=== PATIENT | female | born 1945 | race Caucasian/White ===

== ENCOUNTER 2018-08-27 13:56 | Outpatient (CLI) | payer OTHER, SELFPAY ==
[2018-08-27 15:10] LABS: Abs Immature Grans 0.01 k/cumm (0.0-0.09); Absolute Basophil Count 0.01 k/cumm (0.0-0.2); Absolute Eosinophil Count 0.18 k/cumm (0.0-0.7); Absolute Lymphocyte Count 1.29 k/cumm (1.2-3.4); Absolute Monocyte Count 0.71 k/cumm (0.11-0.7); Absolute Neutrophil Count 4.09 k/cumm (1.2-6.7); Basophils % 0.2; Eosinophils % 2.9; HCT 37.1 % (36.0-46.0); HGB 13.1 g/dL (12.0-15.5); Immature Grans % 0.2; Lymphocytes % 20.5; Mean Corp. HGB Concentration 35.3 g/dL (32.0-36.0); Mean Corpuscular Hemoglobin 31.6 pg (27.0-33.0); Mean Corpuscular Volume 89.6 fL (80-95); Monocytes % 11.3; Neutrophils % 64.9; Platelet Count 285 x1000/uL (130-400); RBC 4.14 m/cumm (4.00-5.20); RBC Distribution Width 13.8 % (11.7-14.6); White Blood Cell Count 6.29 k/cumm (4.4-10.8)
[2018-08-27 15:25] LABS: ALT 14 U/L (12-78); AST 18 U/L (15-37); Albumin 2.8 g/dL (3.4-5.0); Alkaline Phosphatase 72 U/L (46-116); Anion Gap 9.2 mmol/L (3-11); BUN 32 mg/dL (7-18); Bilirubin, Total 0.5 mg/dL (0.2-1.0); CO2 28.8 mmol/L (21.0-32.0); CREATININE 0.49 mg/dL (0.55-1.02); Calcium 8.7 mg/dL (8.5-10.1); Chloride 99 mmol/L (98-107); Glucose 99 mg/dL (70-100); Sodium 137 mmol/L (136-145); Total Protein 6.8 g/dL (6.4-8.2)
[2018-08-30 10:32] LABS: CEA 3.7 ng/ml
== END 2018-08-27 14:16 ==
PROVIDERS: PCP Family Medicine; Visit Provider Internal Medicine Hematology & Oncology
DX: C15.9 Malignant neoplasm of esophagus, unspecified (principal)
CPT/HCPCS: 36415; 80053; 82378; 85025

== ENCOUNTER 2018-09-10 01:28 | Outpatient (RCR) | payer OTHER, SELFPAY ==
[2018-08-27] MEDS: Heparin 500 UNITS/5 ML SYRINGE IV (14:30)
[2018-08-27] MEDS: Normal Saline Flush 10 ML SYR IVP (14:30)
[2018-08-31] MEDS: Normal Saline Flush 10 ML SYR IVP (10:19)
[2018-08-31 10:30] LABS: Absolute Basophil Count 0.01 k/cumm (0.0-0.2); Absolute Eosinophil Count 0.19 k/cumm (0.0-0.7); Absolute Lymphocyte Count 0.84 k/cumm (1.2-3.4); Absolute Monocyte Count 0.92 k/cumm (0.11-0.7); Absolute Neutrophil Count 3.01 k/cumm (1.2-6.7); Basophils % 0.2; Eosinophils % 3.8; HCT 36.2 % (36.0-46.0); HGB 12.4 g/dL (12.0-15.5); Lymphocytes % 16.9; Mean Corp. HGB Concentration 34.3 g/dL (32.0-36.0); Mean Corpuscular Volume 93.3 fL (80-95); Mean Platelet Volume 10.6 fL (8.0-11.0); Monocytes % 18.5; Neutrophils % 60.6; Platelet Count 249 x1000/uL (130-400); RBC 3.88 m/cumm (4.00-5.20); RBC Distribution Width 15.8 % (11.7-14.6); White Blood Cell Count 4.97 k/cumm (4.4-10.8)
[2018-08-31 10:42] LABS: ALT 17 U/L (12-78); AST 16 U/L (15-37); Albumin 2.7 g/dL (3.4-5.0); Alkaline Phosphatase 72 U/L (46-116); Anion Gap 5.3 mmol/L (3-11); BUN 18 mg/dL (7-18); Bilirubin, Total 0.2 mg/dL (0.2-1.0); CO2 27.7 mmol/L (21.0-32.0); CREATININE 0.47 mg/dL (0.55-1.02); Calcium 8.4 mg/dL (8.5-10.1); Chloride 106 mmol/L (98-107); Glucose 87 mg/dL (70-100); Magnesium 1.8 mg/dL (1.8-2.4); Potassium 4.3 mmol/L (3.5-5.1); Sodium 139 mmol/L (136-145); Total Protein 6.4 g/dL (6.4-8.2)
[2018-09-10] MEDS: Normal Saline Flush 10 ML SYR IVP (14:05)
[2018-09-10 14:34] LABS: Abs Immature Grans 0.01 k/cumm (0.0-0.09); Absolute Basophil Count 0.02 k/cumm (0.0-0.2); Absolute Eosinophil Count 0.07 k/cumm (0.0-0.7); Absolute Lymphocyte Count 0.92 k/cumm (1.2-3.4); Absolute Monocyte Count 1.38 k/cumm (0.11-0.7); Absolute Neutrophil Count 3.17 k/cumm (1.2-6.7); Basophils % 0.4; Eosinophils % 1.3; HCT 38.1 % (36.0-46.0); HGB 13.1 g/dL (12.0-15.5); Immature Grans % 0.2; Lymphocytes % 16.5; Mean Corp. HGB Concentration 34.4 g/dL (32.0-36.0); Mean Corpuscular Hemoglobin 32.3 pg (27.0-33.0); Mean Corpuscular Volume 94.1 fL (80-95); Mean Platelet Volume 10.6 fL (8.0-11.0); Monocytes % 24.8; Neutrophils % 56.8; Platelet Count 316 x1000/uL (130-400); RBC 4.05 m/cumm (4.00-5.20); RBC Distribution Width 16.7 % (11.7-14.6); White Blood Cell Count 5.57 k/cumm (4.4-10.8)
[2018-09-10 14:46] LABS: ALT 16 U/L (12-78); AST 14 U/L (15-37); Albumin 2.8 g/dL (3.4-5.0); Alkaline Phosphatase 90 U/L (46-116); Anion Gap 6.9 mmol/L (3-11); BUN 37 mg/dL (7-18); Bilirubin, Total 0.3 mg/dL (0.2-1.0); CO2 28.1 mmol/L (21.0-32.0); CREATININE 0.95 mg/dL (0.55-1.02); Calcium 8.4 mg/dL (8.5-10.1); Chloride 98 mmol/L (98-107); Estimated GFR 57.82 (mL/min/1.73m2); Glucose 98 mg/dL (70-100); Magnesium 1.9 mg/dL (1.8-2.4); Potassium 3.7 mmol/L (3.5-5.1); Sodium 133 mmol/L (136-145); Total Protein 6.5 g/dL (6.4-8.2)
== END 2018-09-19 23:59 | disposition home or self-care (01) ==
LOC: INF 01:28
PROVIDERS: PCP Family Medicine; Visit Provider Internal Medicine Hematology & Oncology
DX: C15.9 Malignant neoplasm of esophagus, unspecified (principal); Z45.2 Encounter for adjustment and management of vascular access device
CPT/HCPCS: 36591; 80053; 83735; 85025

== ENCOUNTER 2018-09-10 15:19 | Emergency (ER) | payer OTHER, SELFPAY ==
[2018-09-10 15:25] VITALS: BP 120/66; PULSE 95; RESP 18; TEMP 36.5; O2SAT 98
--- NOTE | 2018-09-10 15:28 | W.ED.GENAD ---
Discharge Plan Disposition Patient Disposition: HOME Condition: Good Discharge Details Chief Complaint: Dizzy/Sync Clinical Impression: Acute dehydration, Diarrhea, Lightheadedness Reason For Visit: SANGITA Primary Care Provider: Adan Pal ED Provider: Nahum Castillo Home Meds and New Rx's Prescriptions: No Action prochlorperazine maleate [Compazine] 10 mg Tablet 10 mg PO DAILY RF: 0 aspirin [Aspir-81] 81 mg Tablet,Delayed Release (Dr/Ec) 81 mg PO DAILY RF: 0 acetaminophen 500 mg Tablet 500 mg PO Q6H PRNRF: 0 potassium chloride 20 mEq/15 mL Liquid 20 meq PO DAILY RF: 0 bisacodyl [Biscolax] 10 mg Suppository 10 mg IN DAILY PRNRF: 0 lisinopril-hydrochlorothiazide 20-25 mg Tablet 1 tab PO DAILY RF: 0 esomeprazole magnesium 20 mg Capsule,Delayed Release(Dr/Ec) 20 mg PO DAILY RF: 0 simvastatin 20 mg Tablet 20 mg PO QPM RF: 0 Medical Decision Making This is a very pleasant 73-year-old female with a past medical history of esophageal cancer with metastases, who is currently taking chemotherapy, there is a G-tube secondary to the cancer. She received her Ensure feeds yesterday and normally has diarrhea after that, she has had a few episodes of diarrhea like the look of her Ensure since then. Today while going to her cancer center she felt notably lightheaded. She did not pass out or have any loss of consciousness. She did feel lightheaded but had no associated significant chest pain shortness of breath vision changes headache nausea or vomiting. On initial assessment by the staff at the facility patient was hypotensive, and the patient got here after 300 mL's of normal saline her pressure at notably increased is 100 systolic. Physical exam demonstrates no neurologic deficits, no signs of stroke. There is no clinical indication for emergent graphic imaging of the head. Abdomen is nontender and nondistended. Patient does have notably dry mucosa, and her labs that were performed do demonstrate evidence of mild prerenal component suggestive of dehydration which correlate well with her diarrhea and symptoms. She has had no red flags of recent travel, hematochezia, melena, or recent antibiotic use. I feel that her signs and symptoms are clinically consistent with a mild vasovagal event secondary to dehydration from mild diarrhea which is secondary to her Ensure gastric feed. We will rehydrate the patient, and reassess. Vital signs at this time are stable and reassuring. EKG benign. 5:07 PM After 2.5 L of normal saline the patient is feeling much better. Her orthostatic vital signs have returned and all pressures are over 100 systolic. We did get the patient up and ambulate her around the department she did very well with this. No signs of dizziness, syncope or near syncope. I had a long discussion with the patient and her daughter who is at bedside, patient states that she feels much better, and is ready to go home. Patient and family will be discharged home with close follow-up. Recommend continuation of her home Imodium, as well as good hydration at home. Repeat abdominal exam demonstrates no significant tenderness, no neurologic deficits on exam and otherwise benign appearing repeat physical exam. I have extensively reviewed the treatment plan and discharge instructions with the patient and their family. I have addressed all patient concerns at this time. The patient and family was made aware of what symptoms to monitor for that would warrant a return to the emergency department. Discussed the plan with the patient and family, they demonstrate verbal understanding and agreement with our assessment and plan at this time. EKG 15: 38 Rate 98, intervals normal, sinus rhythm, no significant ST elevations or depressions, no T wave inversions, normal minimal Q wave in lead III. No other acute changes or abnormalities HPI General Date/Time Provider Initiated Documentation: 09/10/18 15:27. HPI Narrative: This is a 73-year-old female with past medical history of esophageal cancer with metastases actively receiving chemotherapy, as well as neurofibromatosis, who presents today for an episode of near syncope. The patient has a G-tube for which she regularly gets feedings with Ensure, she states that every time after these feeding she usually has a few episodes of diarrhea. Today she has had 3 or 4 episodes of loose stool that is the color and consistency of her Ensure. The patient went to the cancer center where she found that when she stood up she got very lightheaded. She did not pass out, she did not hit her head. Pressure was measured at that time and was noted to be in the 70s-80s systolic, IV fluids were started there and she received 300 mL. EMS arrived and brought her to the ER for further evaluation. Upon arrival to the ER her blood pressure had notably improved to 100 systolic. Patient denies any significant abdominal pain or cramps. She denies any chest pain shortness of breath, arm pain neck pain, headache or vision changes. She denies any new numbness tingling or weakness. She has no other complaints or modifying factors at this time. Related Data Home Medications Medication Instructions Recorded Confirmed acetaminophen 500 mg PO Q6H PRN 09/10/18 09/10/18 aspirin [Aspir-81] 81 mg PO DAILY 09/10/18 09/10/18 bisacodyl [Biscolax] 10 mg IN DAILY PRN 09/10/18 09/10/18 esomeprazole magnesium 20 mg PO DAILY 09/10/18 09/10/18 lisinopril-hydrochlorothiazide 1 tab PO DAILY 09/10/18 09/10/18 potassium chloride 20 meq PO DAILY 09/10/18 09/10/18 prochlorperazine maleate 10 mg PO DAILY 09/10/18 09/10/18 [Compazine] simvastatin 20 mg PO QPM 09/10/18 09/10/18 Allergies Allergy/AdvReac Type Severity Reaction Status Date / Time shellfish derived Allergy Severe Anaphylaxsi Unverified 09/10/18 16:04 s hymenoptera Allergy Severe Anaphylaxsi Uncoded 09/10/18 16:04 s General Stated Complaint: Dizzy/Sync MJ: 2 Review of Systems Review of Systems All systems reviewed & are unremarkable except as noted in HPI and below PFSH Social History Do you feel safe at home: Yes Do you feel safe in your relationship?: Yes Exam Narrative Exam Narrative: 1.Const: Well-nourished, Well-developed, appearing stated age 2.Eyes: PERRL, no conjunctival injection, and symmetrical lids. 3.ENT: Atraumatic external nose and ears. Notably dry MM. Neck: Symmetric, trachea midline, No thyromegaly. 4.CVS: +S1/S2, No murmurs or gallops. Peripheral pulses 2+ and equal in all extremities. Brisk capillary refill in all extremities. 5.RESP: Unlabored respiratory effort. Clear to auscultation bilaterally. No wheezes rales or rhonchi 6.GI: Soft, Nontender/Nondistended, No hepatosplenomegaly. No guarding or rebound. G-tube is in place. No drainage or discharge or redness 7.MSK: Normocephalic/Atraumatic, Extremities w/o deformity or ttp No cyanosis or clubbing, Normal movement of all extremities 8.Skin: Warm, Dry. No rashes or lesions. 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 Sensation grossly intact, no focal neurologic deficits. All 6 cardinal planes of vision are fully intact. No evidence of rotatory or vertical nystagmus. The patient demonstrated a normal [id number]-[id number], good dexterity. There was no evidence of dysdiadochokinesia. Patient was able to ambulate without difficulty. There was no wide-based gait. Romberg, and [id number] are both normal on testing. Sensation was intact bilaterally as well as muscle strength bilaterally for all extremities. Patient was able to verbalize butter cup with no slurring, or miss pronunciation. 10.Psych: (AAO) x3. Appropriate mood and affect Course Vital Signs Temperature 36.5 C 09/10/18 15:25 Pulse 95 H 09/10/18 15:25 Respiratory Rate 18 09/10/18 15:25 Blood Pressure 120/66 09/10/18 15:25 Pulse Oximetry 98 09/10/18 15:25 Temperature 36.5 C 09/10/18 15:25 Pulse 95 H 09/10/18 15:25 Respiratory Rate 18 09/10/18 15:25 Blood Pressure 120/66 09/10/18 15:25 Pulse Oximetry 98 09/10/18 15:25 Oxygen Delivery Method Room Air 09/10/18 15:25 Oxygen Flow Rate 0 09/10/18 15:25 Pain Level 0 09/10/18 15:25
--- NOTE | 2018-09-10 15:36 | ED.GENADUL_ITS ---
Discharge Plan Disposition Patient Disposition: HOME Condition: Good Discharge Details Chief Complaint: Dizzy/Sync Clinical Impression: Acute dehydration, Diarrhea, Lightheadedness Reason For Visit: SANGITA Primary Care Provider: Adan Pal ED Provider: Nahum Castillo Home Meds and New Rx's Prescriptions: No Action prochlorperazine maleate [Compazine] 10 mg Tablet 10 mg PO DAILY RF: 0 aspirin [Aspir-81] 81 mg Tablet,Delayed Release (Dr/Ec) 81 mg PO DAILY RF: 0 acetaminophen 500 mg Tablet 500 mg PO Q6H PRNRF: 0 potassium chloride 20 mEq/15 mL Liquid 20 meq PO DAILY RF: 0 bisacodyl [Biscolax] 10 mg Suppository 10 mg SC DAILY PRNRF: 0 lisinopril-hydrochlorothiazide 20-25 mg Tablet 1 tab PO DAILY RF: 0 esomeprazole magnesium 20 mg Capsule,Delayed Release(Dr/Ec) 20 mg PO DAILY RF: 0 simvastatin 20 mg Tablet 20 mg PO QPM RF: 0 Medical Decision Making This is a very pleasant 73-year-old female with a past medical history of esophageal cancer with metastases, who is currently taking chemotherapy, there is a G-tube secondary to the cancer. She received her Ensure feeds yesterday and normally has diarrhea after that, she has had a few episodes of diarrhea like the look of her Ensure since then. Today while going to her cancer center she felt notably lightheaded. She did not pass out or have any loss of consciousness. She did feel lightheaded but had no associated significant chest pain shortness of breath vision changes headache nausea or vomiting. On initial assessment by the staff at the facility patient was hypotensive, and the patient got here after 300 mL's of normal saline her pressure at notably increased is 100 systolic. Physical exam demonstrates no neurologic deficits, no signs of stroke. There is no clinical indication for emergent graphic imaging of the head. Abdomen is nontender and nondistended. Patient does have notably dry mucosa, and her labs that were performed do demonstrate evidence of mild prerenal component suggestive of dehydration which correlate well with her diarrhea and symptoms. She has had no red flags of recent travel, hematochezia, melena, or recent antibiotic use. I feel that her signs and symptoms are clinically consistent with a mild vasovagal event secondary to dehydration from mild diarrhea which is secondary to her Ensure gastric feed. We will rehydrate the patient, and reassess. Vital signs at this time are stable and reassuring. EKG benign. 5:07 PM After 2.5 L of normal saline the patient is feeling much better. Her orthostatic vital signs have returned and all pressures are over 100 systolic. We did get the patient up and ambulate her around the department she did very w ell with this. No signs of dizziness, syncope or near syncope. I had a long discussion with the patient and her daughter who is at bedside, patient states that she feels much better, and is ready to go home. Patient and family will be discharged home with close follow-up. Recommend continuation of her home Imodium, as well as good hydration at home. Repeat abdominal exam demonstrates no significant tenderness, no neurologic deficits on exam and otherwise benign appearing repeat physical exam. I have extensively reviewed the treatment plan and discharge instructions with the patient and their family. I have addressed all patient concerns at this time. The patient and family was made aware of what symptoms to monitor for that would warrant a return to the emergency department. Discussed the plan with the patient and family, they demonstrate verbal understanding and agreement with our assessment and plan at this time. EKG 15: 38 Rate 98, intervals normal, sinus rhythm, no significant ST elevations or depressions, no T wave inversions, normal minimal Q wave in lead III. No other acute changes or abnormalities HPI General Date/Time Provider Initiated Documentation: 09/10/18 15:27 . HPI Narrative: This is a 73-year-old female with past medical history of esophageal cancer with metastases actively receiving chemotherapy, as well as neurofibromatosis, who presents today for an episode of near syncope. The patient has a G-tube for which she regularly gets feedings with Ensure, she states that every time after these feeding she usually has a few episodes of diarrhea. Today she has had 3 or 4 episodes of loose stool that is the color and consistency of her Ensure. The patient went to the cancer center where she found that when she stood up she got very lightheaded. She did not pass out, she did not hit her head. Pressure was measured at that time and was noted to be in the 70s-80s systolic, IV fluids were started there and she received 300 mL. EMS arrived and brought her to the ER for further evaluation. Upon arrival to the ER her blood pressure had notably improved to 100 systolic. Patient denies any significant abdominal pain or cramps. She denies any chest pain shortness of breath, arm pain neck pain, headache or vision changes. She denies any new numbness tingling or weakness. She has no other complaints or modifying factors at this time. Related Data Home Medications Medication Instructions Recorded Confirmed acetaminophen 500 mg PO Q6H PRN 09/10/18 09/10/18 aspirin [Aspir-81] 81 mg PO DAILY 09/10/18 09/10/18 bisacodyl [Biscolax] 10 mg SC DAILY PRN 09/10/18 09/10/18 esomeprazole magnesium 20 mg PO DAILY 09/10/18 09/10/18 lisinopril-hydrochlorothiazide 1 tab PO DAILY 09/10/18 09/10/18 potassium chloride 20 meq PO DAILY 09/10/18 09/10/18 prochlorperazine maleate 10 mg PO DAILY 09/10/18 09/10/18 [Compazine] simvastatin 20 mg PO QPM 09/10/18 09/10/18 Allergies Allergy/AdvReac Type Severity Reaction Status Date / Time shellfish derived Allergy Severe Anaphylaxsi Unverified 09/10/18 16:04 s hymenoptera Allergy Severe Anaphylaxsi Uncoded 09/10/18 16:04 s General Stated Complaint: Dizzy/Sync MJ: 2 Review of Systems Review of Systems All systems reviewed & are unremarkable except as noted in HPI and below PFSH Social History Do you feel safe at home: Yes Do you feel safe in your relationship?: Yes Exam Narrative Exam Narrative: 1.Const: Well-nourished, Well-developed, appearing stated age 2.Eyes: PERRL, no conjunctival injection, and symmetrical lids. 3.ENT: Atraumatic external nose and ears. Notably dry MM. Neck: Symmetric, trachea midline, No thyromegaly. 4.CVS: +S1/S2, No murmurs or gallops. Peripheral pulses 2+ and equal in all extremities. Brisk capillary refill in all extremities. 5.RESP: Unlabored respiratory effort. Clear to auscultation bilaterally. No wheezes rales or rhonchi 6.GI: Soft, Nontender/Nondistended, No hepatosplenomegaly. No guarding or rebound. G-tube is in place. No drainage or discharge or redness 7.MSK: Normocephalic/Atraumatic, Extremities w/o deformity or ttp No cyanosis or clubbing, Normal movement of all extremities 8.Skin: Warm, Dry. No rashes or lesions. 9.Neuro: member of [employer] II-XII grossly intact. Sensation grossly intact, no focal neurologic deficits. All 6 cardinal planes of vision are fully intact. No evidence of rotatory or vertical nystagmus. The patient demonstrated a normal [id number], good dexterity. There was no evidence of dysdiadochokinesia. Patient was able to ambulate without difficulty. There was no wide-based gait. Romberg, and [id number] are both normal on testing. Sensation was intact bilaterally as well as muscle strength bilaterally for all extremities. Patient was able to verbalize butter cup with no slurring, or miss pronunciation. 10.Psych: (AAO) x3. Appropriate mood and affect Course Vital Signs Temperature 36.5 C 09/10/18 15:25 Pulse 95 H 09/10/18 15:25 Respiratory Rate 18 09/10/18 15:25 Blood Pressure 120/66 09/10/18 15:25 Pulse Oximetry 98 09/10/18 15:25 Temperature 36.5 C 09/10/18 15:25 Pulse 95 H 09/10/18 15:25 Respiratory Rate 18 09/10/18 15:25 Blood Pressure 120/66 09/10/18 15:25 Pulse Oximetry 98 09/10/18 15:25 Oxygen Delivery Method Room Air 09/10/18 15:25 Oxygen Flow Rate 0 09/10/18 15:25 Pain Level 0 09/10/18 15:25
[2018-09-10 16:47] VITALS: BP 105/63; BP 109/65; BP 96/54; PULSE 110; PULSE 98
[2018-09-10] MEDS: Loperamide 2 MG CAP (17:11)
[2018-09-10] MEDS: Normal Saline 500 ML 1000 ML IV (17:12)
[2018-09-10] MEDS: Heparin 500 UNITS/5 ML SYRINGE (17:56)
--- NOTE | 2018-09-10 17:57 | NUR.NOTE ---
patient's port deacessed per hospital policy Nursing Note:
== END 2018-09-10 17:56 | disposition home or self-care (01) ==
PROVIDERS: Emergency Provider Student in an Organized Health Care Education/Training Program; PCP Family Medicine
DX: E86.0 Dehydration (principal); R19.7 Diarrhea, unspecified; R42 Dizziness and giddiness
CPT/HCPCS: 93005; 96360; 99283; 93010

== ENCOUNTER 2018-12-31 13:36 | Outpatient (RCR) | payer OTHER, SELFPAY ==
[2018-12-31] MEDS: Normal Saline Flush 10 ML SYR IVP (13:59)
[2018-12-31 14:08] LABS: Abs Immature Grans 0.02 k/cumm (0.0-0.09); Absolute Basophil Count 0.04 k/cumm (0.0-0.2); Absolute Eosinophil Count 0.04 k/cumm (0.0-0.7); Absolute Lymphocyte Count 1.18 k/cumm (1.2-3.4); Absolute Monocyte Count 0.97 k/cumm (0.11-0.7); Absolute Neutrophil Count 5.58 k/cumm (1.2-6.7); Basophils % 0.5; Eosinophils % 0.5; HCT 35.7 % (36.0-46.0); Immature Grans % 0.3; Lymphocytes % 15.1; Mean Corp. HGB Concentration 33.6 g/dL (32.0-36.0); Mean Corpuscular Volume 107.2 fL (80-95); Mean Platelet Volume 10.5 fL (8.0-11.0); Monocytes % 12.4; Neutrophils % 71.2; Platelet Count 252 x1000/uL (130-400); RBC 3.33 m/cumm (4.00-5.20); RBC Distribution Width 15.2 % (11.7-14.6); White Blood Cell Count 7.83 k/cumm (4.4-10.8)
[2018-12-31 14:25] LABS: Diff Comment RBC Morph Reviewed
[2018-12-31 14:26] LABS: Macrocytosis 2+; Polychromasia Present
[2018-12-31 15:31] LABS: ALT 16 U/L (12-78); AST 25 U/L (15-37); Albumin 2.1 g/dL (3.4-5.0); Alkaline Phosphatase 104 U/L (46-116); Anion Gap 6.4 mmol/L (3-11); BUN 19 mg/dL (7-18); Bilirubin, Total 0.3 mg/dL (0.2-1.0); CO2 30.6 mmol/L (21.0-32.0); CREATININE 0.51 mg/dL (0.55-1.02); Calcium 8.6 mg/dL (8.5-10.1); Chloride 103 mmol/L (98-107); Glucose 111 mg/dL (70-100); Potassium 3.5 mmol/L (3.5-5.1); Sodium 140 mmol/L (136-145); Total Protein 6.1 g/dL (6.4-8.2)
== END 2019-01-19 23:59 | disposition home or self-care (01) ==
LOC: INF 13:36
PROVIDERS: PCP Family Medicine; Visit Provider Internal Medicine Hematology & Oncology
DX: C15.9 Malignant neoplasm of esophagus, unspecified (principal); Z45.2 Encounter for adjustment and management of vascular access device
CPT/HCPCS: 36591; 80053; 83735; 85025

== ENCOUNTER 2019-02-15 01:20 | Outpatient (RCR) | payer OTHER, SELFPAY ==
[2019-02-15 09:32] LABS: Abs Immature Grans 0.01 k/cumm (0.0-0.09); Absolute Basophil Count 0.02 k/cumm (0.0-0.2); Absolute Eosinophil Count 0.19 k/cumm (0.0-0.7); Absolute Lymphocyte Count 0.85 k/cumm (1.2-3.4); Absolute Monocyte Count 1.27 k/cumm (0.11-0.7); Absolute Neutrophil Count 4.84 k/cumm (1.2-6.7); Basophils % 0.3; Eosinophils % 2.6; HCT 38.2 % (36.0-46.0); Immature Grans % 0.1; Lymphocytes % 11.8; Mean Corpuscular Hemoglobin 35.4 pg (27.0-33.0); Mean Corpuscular Volume 104.1 fL (80-95); Monocytes % 17.7; Neutrophils % 67.5; Platelet Count 258 x1000/uL (130-400); RBC 3.67 m/cumm (4.00-5.20); White Blood Cell Count 7.18 k/cumm (4.4-10.8)
[2019-02-15] MEDS: Normal Saline Flush 10 ML SYR IVP (09:40)
[2019-02-15 09:51] LABS: ALT 16 U/L (14-59); AST 11 U/L (15-37); Albumin 2.6 g/dL (3.4-5.0); Alkaline Phosphatase 98 U/L (46-116); Anion Gap 7.9 mmol/L (3-11); BUN 18 mg/dL (7-18); Bilirubin, Total 0.5 mg/dL (0.2-1.0); CO2 27.1 mmol/L (21.0-32.0); CREATININE 0.73 mg/dL (0.55-1.02); Calcium 8.8 mg/dL (8.5-10.1); Chloride 102 mmol/L (98-107); Glucose 87 mg/dL (70-100); Magnesium 1.7 mg/dL (1.8-2.4); Potassium 4.7 mmol/L (3.5-5.1); Sodium 137 mmol/L (136-145); Total Protein 6.5 g/dL (6.4-8.2)
== END 2019-02-19 23:59 | disposition home or self-care (01) ==
LOC: INF 01:20
PROVIDERS: PCP Family Medicine; Visit Provider Internal Medicine Hematology & Oncology
DX: C15.9 Malignant neoplasm of esophagus, unspecified (principal); Z45.2 Encounter for adjustment and management of vascular access device
CPT/HCPCS: 36591; 80053; 83735; 85025

== ENCOUNTER 2019-03-01 00:38 | Outpatient (RCR) | payer OTHER, SELFPAY ==
[2019-03-01 10:17] LABS: ALT 12 U/L (14-59); AST 13 U/L (15-37); Albumin 2.3 g/dL (3.4-5.0); Alkaline Phosphatase 94 U/L (46-116); Anion Gap 7.5 mmol/L (3-11); BUN 13 mg/dL (7-18); Bilirubin, Total 0.5 mg/dL (0.2-1.0); CO2 26.5 mmol/L (21.0-32.0); CREATININE 0.59 mg/dL (0.55-1.02); Calcium 8.5 mg/dL (8.5-10.1); Chloride 105 mmol/L (98-107); Glucose 86 mg/dL (70-100); Magnesium 1.6 mg/dL (1.8-2.4); Potassium 4.5 mmol/L (3.5-5.1); Sodium 139 mmol/L (136-145); Total Protein 6.1 g/dL (6.4-8.2)
[2019-03-01] MEDS: Normal Saline Flush 10 ML SYR IVP (10:23)
[2019-03-01 10:24] LABS: Abs Immature Grans 0.01 k/cumm (0.0-0.09); Absolute Basophil Count 0.03 k/cumm (0.0-0.2); Absolute Eosinophil Count 0.33 k/cumm (0.0-0.7); Absolute Monocyte Count 1.34 k/cumm (0.11-0.7); Absolute Neutrophil Count 5.01 k/cumm (1.2-6.7); Basophils % 0.4; Eosinophils % 4.4; HCT 37.5 % (36.0-46.0); HGB 12.5 g/dL (12.0-15.5); Immature Grans % 0.1; Lymphocytes % 9.4; Mean Corp. HGB Concentration 33.3 g/dL (32.0-36.0); Mean Corpuscular Hemoglobin 34.3 pg (27.0-33.0); Mean Platelet Volume 10.7 fL (8.0-11.0); Monocytes % 18.1; Neutrophils % 67.6; Platelet Count 217 x1000/uL (130-400); RBC 3.64 m/cumm (4.00-5.20); RBC Distribution Width 14.8 % (11.7-14.6); White Blood Cell Count 7.42 k/cumm (4.4-10.8)
== END 2019-03-21 23:59 | disposition home or self-care (01) ==
LOC: INF 00:38
PROVIDERS: PCP Family Medicine; Visit Provider Internal Medicine Hematology & Oncology
DX: C15.9 Malignant neoplasm of esophagus, unspecified (principal); Z45.2 Encounter for adjustment and management of vascular access device
CPT/HCPCS: 36591; 80053; 83735; 85025

== ENCOUNTER 2019-03-11 13:04 | Outpatient (CLI) | payer OTHER, SELFPAY ==
--- NOTE | 2019-03-11 12:15 | DI.RAD_ITS ---
EXAM: XR SHOULDER RT COMPLETE 2+V INDICATION: PAIN UPPER EXTREMITY M79.601. COMPARISON: No exams were available for comparison TECHNIQUE: 2D digital imaging was performed. FINDINGS: There are mild degenerative changes involving the glenohumeral joint. 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 There is evidence of osteoporosis. There is no evidence of a bony or soft ti ssue mass.
--- NOTE | 2019-03-11 12:15 | DI.RAD_ITS ---
EXAM: XR HUMERUS RT INDICATION: PAIN UPPER EXTREMITY M79.601. COMPARISON: No exams were available for comparison TECHNIQUE: 2D digital imaging was performed. FINDINGS: The humerus is normally mineralized. Degenerative changes involving the shoulder and elbow are appare nt. There is no evidence of a soft tissue mass.
== END 2019-03-11 13:24 ==
PROVIDERS: PCP Family Medicine; Visit Provider Internal Medicine Hematology & Oncology
DX: M79.601 Pain in right arm (principal); M25.511 Pain in right shoulder; M19.011 Primary osteoarthritis, right shoulder
CPT/HCPCS: 73030; 73060